=== PATIENT | female | born 1980 | race Caucasian/White ===

== ENCOUNTER 2025-06-10 09:02 | Outpatient (CLI) | payer BC ==
[2025-06-10] MEDS ORDERED: Iopamidol 370 76% 100 ML VIAL ONE (11:36)
== END 2025-06-10 09:03 | disposition home or self-care (01) ==
LOC: CT 09:02
PROVIDERS: ATTEND Internal Medicine
DX: C17.2 Malignant neoplasm of ileum (principal)
CPT/HCPCS: 74177